=== PATIENT | male | born 1935 | race Two or more races ===

== ENCOUNTER 2022-03-20 10:57 | Inpatient (IN) | payer MEDICARE, OTHER ==
[~2022-03-20] VITALS: Ht 172.7 cm; Wt 94.8 kg
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
--- NOTE | 2022-03-20 11:40 | NUR ---
PARAMEDIC RN AT BEDSIDE
--- NOTE | 2022-03-20 11:41 | NUR ---
SWAB FOR COVID19 SENT TO LAB
[2022-03-20 11:54] LABS: BASOPHILS % (AUTO) 0.5 % (0.0-2.0); EOSINOPHILS % (AUTO) 0.4 % (0.0-6.0); HEMATOCRIT 41 % (39-51); HEMOGLOBIN 13.7 g/dL (13.5-17.5); LYMPHOCYTES % (AUTO) 10.9 % (20.0-44.0); MEAN CORPUSCULAR HGB CONC 33 g/dl (31.0-36.0); MEAN CORPUSCULAR VOLUME 81 fL (80-96); MONOCYTES # (AUTO) 0.9 K/uL (0.1-1.30); MONOCYTES % (AUTO) 9.8 % (2.0-12.0); NEUTROPHILS # (AUTO) 7.2 K/uL (1.8-8.9); NEUTROPHILS % (AUTO) 78.4 % (43.0-81.0); PLATELET COUNT (AUTO) 298 K/uL (150-450); RED BLOOD CELL COUNT(AUTO) 5.07 MIL/uL (4.5-6.0); WHITE BLOOD COUNT (AUTO) 9.2 K/uL (4.3-11.0)
[2022-03-20] MEDS ORDERED: METF-440 PO (12:00)
[2022-03-20] MEDS ORDERED: PANT40TA49 PO (12:00)
[2022-03-20] MEDS ORDERED: LISI20TA30 PO (12:00)
[2022-03-20] MEDS ORDERED: RISP1TAB97 PO (12:00)
[2022-03-20] MEDS ORDERED: LINA5TAB PO (12:00)
[2022-03-20] MEDS ORDERED: HYDR100T27 PO (12:00)
[2022-03-20] MEDS ORDERED: DIVA125C5 PO (12:00)
[2022-03-20] MEDS ORDERED: FENO145T21 PO (12:00)
[2022-03-20 12:11] LABS: CALCIUM, SERUM 9.6 mg/dL (8.5-10.1); CARBON DIOXIDE 26 mmol/L (21-32); CHLORIDE 100 mmol/L (98-107); CREATININE 1.3 mg/dL (0.6-1.3); GLUCOSE 148 mg/dL (74-106); POTASSIUM 3.2 mmol/L (3.5-5.1); SODIUM SERUM 138 mmol/L (136-145); UREA NITROGEN, BLOOD 13 mg/dL (7-18)
[2022-03-20 12:17] LABS: ALANINE AMINOTRANSFERASE 12 U/L (12-78); ALBUMIN 4.1 g/dL (3.4-5.0); ALCOHOL, BLOOD < 3 mg/dL (0-0); ALKALINE PHOSPHATASE 50 U/L (46-116); ASPARTATE AMINOTRANSFERASE 14 U/L (15-37); BILIRUBIN,DIRECT 0.1 mg/dL (0.0-0.2); BILIRUBIN,TOTAL 0.3 mg/dL (0.2-1.0); TOTAL PROTEIN, SERUM 8.2 g/dL (6.4-8.2)
[2022-03-20 12:20] LABS: ACETAMINOPHEN < 10 ug/ml (10-30)
--- NOTE | 2022-03-20 13:14 | NUR ---
URINE SAMPLE SENT TO LAB
[2022-03-20 14:00] LABS: BILIRUBIN,URINE NEGATIVE (NEGATIVE); COLOR,URINE YELLOW (YELLOW); LEUKOCYTE ESTERASE ,URINE NEGATIVE (NEGATIVE); NITRITE, URINE NEGATIVE (NEGATIVE); PROTEIN,URINE 2+ mg/dl (NEGATIVE); UGLUCOSE 1+ mg/dL (NEGATIVE)
[2022-03-20 14:02] LABS: BACTERIA,URINE Rare /HPF (None Seen); SQUAMOUS EPITHELIAL CELL,UR Few /HPF (None Seen); WBC,URINE 0-2 /HPF (0-3)
--- NOTE | 2022-03-20 15:11 | NUR ---
REPORT GIVEN TO NILA MIGUEL OF [employer]
[2022-03-20] MEDS ORDERED: DEXTROSE 50%-WATER 50 ML DISP.SYRIN IV PRN ×2 (15:30→16:00)
[2022-03-20] MEDS ORDERED: INSULIN REGULAR, HUMAN 100 UNIT/ML 3 ML VIAL SQ PRN (15:30)
[2022-03-20] MEDS ORDERED: *INSULIN REGULAR(HUMULIN R)HUM 100 UNIT/ML VIAL SQ PRN (15:30)
[2022-03-20] MEDS ORDERED: POTASSIUM CHLORIDE 20 MEQ TAB.PRT.SR PO ONE (16:00)
[2022-03-20 16:16] VITALS: BP 150/97
[2022-03-20] MEDS ORDERED: BLOOD SUGAR DIAGNOSTIC 1 EACH STRIP IN ONE (16:30)
[2022-03-20] MEDS ORDERED: MAGNESIUM HYDROXIDE 30 ML UDC PO PRN (16:30)
[2022-03-20] MEDS ORDERED: DIVALPROEX SODIUM 250 MG TABLET.DR PO PRN (16:30)
[2022-03-20] MEDS ORDERED: MAG HYDROX/AL HYDROX/SIMETH 30 ML UDC PO PRN (16:30)
[2022-03-20] MEDS ORDERED: clonazePAM 0.5 MG TABLET PO PRN ×2 (16:30→18:30)
[2022-03-20] MEDS ORDERED: ACETAMINOPHEN 325 MG TABLET PO PRN (16:30)
[2022-03-20] MEDS ORDERED: METFORMIN 500 MG TABLET PO SCH (17:00)
[2022-03-20] MEDS ORDERED: hydrALAZINE HCL 50 MG TABLET PO SCH (17:00)
[2022-03-20] MEDS ORDERED: DIVALPROEX SODIUM 125 MG CAP.SPRINK PO SCH ×2 (17:00)
[2022-03-20] MEDS: METFORMIN 500 MG TABLET PO SCH (17:24)
[2022-03-20] MEDS: hydrALAZINE HCL 50 MG TABLET PO SCH (17:24)
[2022-03-20] MEDS: INSULIN REGULAR, HUMAN 100 UNIT/ML 3 ML VIAL SQ PRN (17:25)
[2022-03-20] MEDS: BLOOD SUGAR DIAGNOSTIC 1 EACH STRIP VI SCH ×2 (17:27→22:01)
[2022-03-20] MEDS ORDERED: BLOOD SUGAR DIAGNOSTIC 1 EACH STRIP VI SCH (17:30)
--- NOTE | 2022-03-20 17:44 | NUR ---
Admitted an 87 years old male on 515 for GD. Pt.eloped from the facility , non compliant with care and agitated. Pt. is unable to to provide for his food, retirement or clothing due to a mental disorder. Pt. arrived in the unit via a wheelchair and wheeled by ER staffs. V/S taken, contraband done, skin assessment done with clear and intact skin and pt. signed the admissions papers. Upon face to face assessment, pt. is alert/oriented x2, very cooperative, denies suicidal and homicidal, denies visual and auditory hallucinations. Dr. Vines covering for Dr. Mock made aware of the admissions with orders and Dr. Hale reconciled meds. Needs attended and will continue to monitor for safety.
[2022-03-20 20:00] VITALS: BP 139/79
--- NOTE | 2022-03-20 20:32 | NUR ---
PATIENT IN BED ASLEEP. SAFETY MEASURES IMPLEMENTED. WILL CONTINUE TO MONITOR FOR SAFETY AND BEHAVIOR.
[2022-03-20] MEDS: *INSULIN REGULAR(HUMULIN R)HUM 100 UNIT/ML VIAL SQ PRN (22:02)
[2022-03-21 07:26] LABS: ALBUMIN 3.7 g/dL (3.4-5.0); BILIRUBIN,TOTAL 0.3 mg/dL (0.2-1.0); CALCIUM, SERUM 9.3 mg/dL (8.5-10.1); CREATININE 1.3 mg/dL (0.6-1.3); POTASSIUM 3.6 mmol/L (3.5-5.1); TOTAL PROTEIN, SERUM 7.4 g/dL (6.4-8.2)
[2022-03-21 07:29] LABS: CHOLESTEROL 94 mg/dL (<200); HDL CHOLESTEROL 31 mg/dL (40-60); LDL 60 mg/dL (0-99); TRIGLYCERIDES 62 mg/dL (30-150)
[2022-03-21] MEDS: BLOOD SUGAR DIAGNOSTIC 1 EACH STRIP VI SCH ×4 (07:33→21:58)
[2022-03-21 08:00] VITALS: BP 160/99
[2022-03-21] MEDS: METFORMIN 500 MG TABLET PO SCH ×2 (08:35→16:16)
[2022-03-21] MEDS: hydrALAZINE HCL 50 MG TABLET PO SCH ×3 (08:35→16:16)
[2022-03-21] MEDS: PANTOPRAZOLE 40 MG TABLET.DR PO SCH (08:39)
[2022-03-21] MEDS: Fenofibrate 48 MG TABLET PO SCH (08:39)
[2022-03-21] MEDS: LISINOPRIL (20MG) 20 MG TABLET PO SCH (08:40)
[2022-03-21] MEDS: LINAGLIPTIN 5 MG TABLET PO SCH (08:40)
[2022-03-21] MEDS ORDERED: PANTOPRAZOLE 40 MG TABLET.DR PO SCH (09:00)
[2022-03-21] MEDS ORDERED: LINAGLIPTIN 5 MG TABLET PO SCH (09:00)
[2022-03-21] MEDS ORDERED: LISINOPRIL (20MG) 20 MG TABLET PO SCH (09:00)
[2022-03-21] MEDS ORDERED: FENOFIBRATE NANOCRYS (145 MG) 145 MG TABLET PO SCH (09:00)
[2022-03-21] MEDS: risperiDONE 1 MG TABLET PO SCH ×2 (11:18→16:16)
[2022-03-21] MEDS: DIVALPROEX SODIUM 250 MG TABLET.DR PO SCH ×3 (11:19→16:16)
[2022-03-21 13:18] VITALS: BP 134/86
[2022-03-21 15:51] LABS: CREATININE 1.3 mg/dL (0.6-1.3)
[2022-03-21 16:11] VITALS: BP 161/99
--- NOTE | 2022-03-21 18:16 | NUR ---
RN-NOTES PATIENT STAYS IN THE ROOM MOST OF THE TIME,LYING IN BED, A/OX2 CALM,COOPERATIVE WITH THE STAFF.NO ACUTE DISTRESS NOTED. COMPLIANT WITH MEDICATIONS.AMBULATORY STEADY GAIT. ALL NEEDS ATTENDED AND ANTICIPATED.WILL CONT. MONITORING FOR SAFETY AND BEHAVIOR.WILL ENDORSE TO THE INCOMING NURSE FOR CONTINUITY OF CARE.
[2022-03-21 20:46] VITALS: BP 145/98
[2022-03-22] MEDS: BLOOD SUGAR DIAGNOSTIC 1 EACH STRIP VI SCH ×4 (07:31→22:03)
[2022-03-22] MEDS: INSULIN REGULAR, HUMAN 100 UNIT/ML 3 ML VIAL SQ PRN ×3 (07:32→16:53)
[2022-03-22 08:00] VITALS: BP 168/83
[2022-03-22] MEDS: Fenofibrate 48 MG TABLET PO SCH (08:40)
[2022-03-22] MEDS: DIVALPROEX SODIUM 250 MG TABLET.DR PO SCH ×3 (08:40→16:50)
[2022-03-22] MEDS: risperiDONE 1 MG TABLET PO SCH ×2 (08:40→16:50)
[2022-03-22] MEDS: LINAGLIPTIN 5 MG TABLET PO SCH (08:40)
[2022-03-22] MEDS: PANTOPRAZOLE 40 MG TABLET.DR PO SCH (08:40)
[2022-03-22] MEDS: hydrALAZINE HCL 50 MG TABLET PO SCH ×3 (08:41→16:51)
[2022-03-22] MEDS: LISINOPRIL (20MG) 20 MG TABLET PO SCH (08:41)
[2022-03-22] MEDS: METFORMIN 500 MG TABLET PO SCH ×2 (08:41→16:50)
[2022-03-22 16:00] VITALS: BP 143/83
--- NOTE | 2022-03-22 18:30 | NUR ---
RN NOTE PATIENT IN BED, AWAKE, VERBALLY RESPONSIVE. NO SIGNS OF ACUTE DISTRESS NOTED. STABLE ON ROOM AIR, BREATHING EVEN AND UNLABORED. PATIENT REMAINS ISOLATIVE, STAYED IN HIS ROOM THROUGHOUT THE SHIFT. COMPLIANT WITH MEDS. ACCUCHECKS DONE, NO S/SX OF HYPO/HYPERGLYCEMIA NOTED. SAFETY MEASURE MAINTAINED. WILL ENDORSE TO NEXT SHIFT FOR CONTINUITY OF CARE.
[2022-03-22 20:24] VITALS: BP 127/84
[2022-03-22] MEDS: TEMAZEPAM 7.5 MG CAPSULE PO PRN (22:04)
--- NOTE | 2022-03-23 07:25 | NUR ---
[facility] RN NOTES RECEIVED PATIENT LYING IN BED, SLEEPING BUT EASILY AWAKEN, A/O X1, WITHDRAWN, COOPERATIVE, NO ACUTE DISTRESS NOTED. NO SOB NOTED, BREATHING EVEN AND UNBLABORED, SAFETY MEASURES IN PLACE: BED AT LOWEST AND LOCKED POSITION, BED ALARM ON, FREQUENT VISUAL CHECK FOR SAFETY AND MONITORING BEHAVIOR. WILL CONTINUE PLAN OF CARE.
[2022-03-23] MEDS: BLOOD SUGAR DIAGNOSTIC 1 EACH STRIP VI SCH ×4 (07:55→21:17)
[2022-03-23 08:00] VITALS: BP 151/90
[2022-03-23] MEDS: LINAGLIPTIN 5 MG TABLET PO SCH (08:45)
[2022-03-23] MEDS: risperiDONE 1 MG TABLET PO SCH ×2 (08:46→16:36)
[2022-03-23] MEDS: METFORMIN 500 MG TABLET PO SCH ×2 (08:46→16:36)
[2022-03-23] MEDS: Fenofibrate 48 MG TABLET PO SCH (08:46)
[2022-03-23] MEDS: DIVALPROEX SODIUM 250 MG TABLET.DR PO SCH ×3 (08:46→16:37)
[2022-03-23] MEDS: PANTOPRAZOLE 40 MG TABLET.DR PO SCH (08:47)
[2022-03-23] MEDS: hydrALAZINE HCL 50 MG TABLET PO SCH ×3 (08:47→16:37)
[2022-03-23] MEDS: LISINOPRIL (20MG) 20 MG TABLET PO SCH (08:47)
--- NOTE | 2022-03-23 08:57 | NUR ---
NATALYA Initial Discharge: Pt currently resides at [address] [address]; ([phone]). NATALYA spoke with Caridad mendieta who stated that pt is not welcomed back due to not being able to care for pt. Pt has no supportive contact. NATALYA will work with the MD and pt to help coordinate appropriate discharge.
--- NOTE | 2022-03-23 08:57 | NUR ---
Treatment Plan: Pt refused to sign treatment plan and was very confused.
--- NOTE | 2022-03-23 08:57 | NUR ---
NATALYA Clinical Note: Pt placed on a 5150 hold for GD. Pt has been eloping for facility and has been non compliant. Pt currently resides at [address] [address]; ([phone]). NATALYA spoke with Caridad mendieta who stated that pt is not welcomed back due to not being able to care for pt. Pt has no supportive contact.
--- NOTE | 2022-03-23 09:19 | NUR ---
SNF Referral: NATALYA sent clinicals to Luke Patten ([phone]) for SNF placement. NATALYA sent H & P, progress notes, and medication list.
--- NOTE | 2022-03-23 10:58 | NUR ---
SNF Contact: SW received a call from Luke Patten ([phone]) who stated pt is accepted at [facility].
[2022-03-23] MEDS: INSULIN REGULAR, HUMAN 100 UNIT/ML 3 ML VIAL SQ PRN (11:45)
[2022-03-23 16:00] VITALS: BP 148/84
--- NOTE | 2022-03-23 18:47 | NUR ---
[facility] RN CLOSING NOTES PATIENT LYING IN BED, SLEEPING BUT EASILY AWAKEN, A/O X2, WITHDRAWN, COOPERATIVE, NO ACUTE DISTRESS NOTED. NO SOB NOTED, BREATHING EVEN AND UNLABORED. ALL DUE MEDS GIVEN, ALL NEEDS MET. SAFETY MEASURES MAINTAINED, KEPT PATIENT SAFE. WILL ENDORSE TO LEAD CARGO MOVER NURSE.
[2022-03-23] MEDS: TEMAZEPAM 7.5 MG CAPSULE PO PRN (21:36)
--- NOTE | 2022-03-24 07:27 | NUR ---
[facility] RN NOTE RECEIVED PT ASLEEP IN BED, EASILY AROUSED. PT IS A/OX2, REORIENTED PT NEEDED. ON ROOM AIR, TOLERATING WELL. NO SOB NOTED. NOT IN ANY SIGN OF RESPIRATORY DISTRESS. SAFETY MEASURES IN PLACE: BED IN LOWEST AND LOCKED POSITION, SIDE RAILS UPX2, BED ALARM ON, AND CALL LIGHT WITHIN REACH. WILL CONTINUE TO MONITOR PT.
[2022-03-24 08:00] VITALS: BP 157/86
[2022-03-24] MEDS: BLOOD SUGAR DIAGNOSTIC 1 EACH STRIP VI SCH ×4 (08:12→22:10)
[2022-03-24] MEDS: INSULIN REGULAR, HUMAN 100 UNIT/ML 3 ML VIAL SQ PRN ×3 (08:12→16:53)
[2022-03-24] MEDS: LINAGLIPTIN 5 MG TABLET PO SCH (08:42)
[2022-03-24] MEDS: Fenofibrate 48 MG TABLET PO SCH (08:42)
[2022-03-24] MEDS: hydrALAZINE HCL 50 MG TABLET PO SCH ×3 (08:43→16:52)
[2022-03-24] MEDS: risperiDONE 1 MG TABLET PO SCH ×2 (08:43→16:52)
[2022-03-24] MEDS: PANTOPRAZOLE 40 MG TABLET.DR PO SCH (08:43)
[2022-03-24] MEDS: DIVALPROEX SODIUM 250 MG TABLET.DR PO SCH ×3 (08:43→16:52)
[2022-03-24] MEDS: METFORMIN 500 MG TABLET PO SCH ×2 (08:43→16:52)
[2022-03-24] MEDS: LISINOPRIL (20MG) 20 MG TABLET PO SCH (08:44)
[2022-03-24 16:00] VITALS: BP 146/95
[2022-03-24 20:07] VITALS: BP 139/94
--- NOTE | 2022-03-24 22:10 | NUR ---
[facility] TREASURY ACCOUNTANT NOTES BLOOD SUGAR CHECKED DONE 116, NO INSULIN COVERAGES AT THIS TIME, NO SIGNS OF HYPO GLYCEMIA NOTED. WILL CONTINUE MONITORING.
[2022-03-24] MEDS: *INSULIN REGULAR(HUMULIN R)HUM 100 UNIT/ML VIAL SQ PRN (22:12)
[2022-03-25] MEDS: BLOOD SUGAR DIAGNOSTIC 1 EACH STRIP VI SCH ×4 (07:59→22:00)
[2022-03-25 08:00] VITALS: BP 150/91
[2022-03-25] MEDS: DIVALPROEX SODIUM 250 MG TABLET.DR PO SCH ×3 (08:46→17:38)
[2022-03-25] MEDS: LISINOPRIL (20MG) 20 MG TABLET PO SCH (08:47)
[2022-03-25] MEDS: PANTOPRAZOLE 40 MG TABLET.DR PO SCH (08:47)
[2022-03-25] MEDS: hydrALAZINE HCL 50 MG TABLET PO SCH ×3 (08:47→17:37)
[2022-03-25] MEDS: LINAGLIPTIN 5 MG TABLET PO SCH (08:47)
[2022-03-25] MEDS: risperiDONE 1 MG TABLET PO SCH ×2 (08:47→17:38)
[2022-03-25] MEDS: METFORMIN 500 MG TABLET PO SCH ×2 (08:47→17:38)
[2022-03-25] MEDS: Fenofibrate 48 MG TABLET PO SCH (09:13)
[2022-03-25 16:00] VITALS: BP 137/92
--- NOTE | 2022-03-25 19:45 | NUR ---
RN OPENING NOTES: RECEIVED PATIENT SLEEP IN BED COMFORTABLY, AROUSABLE TO VERBAL STIMULI, BED IN LOW POSITION, NO COMPLAIN OF PAIN AND DISCOMFORT AT THIS TIME ,ON ROOM AIR SATURATING WELL, NO BEHAVIORAL CHANGES HAS BEEN OBSERVED, KEPT CLEAN AND DRY ALL NEEDS MET, CONTINUE TO MONITOR.
[2022-03-25 20:00] VITALS: BP 138/80
[2022-03-25 20:14] VITALS: BP 138/80
--- NOTE | 2022-03-25 22:11 | NUR ---
RN NOTES: 2200 BLOOD SUGAR-105/ NO INSULIN GIVEN PER SLIDING SCALE
[2022-03-26] MEDS: BLOOD SUGAR DIAGNOSTIC 1 EACH STRIP VI SCH ×4 (07:52→21:26)
[2022-03-26 08:00] VITALS: BP 162/92
[2022-03-26] MEDS: METFORMIN 500 MG TABLET PO SCH ×2 (08:29→16:24)
[2022-03-26] MEDS: Fenofibrate 48 MG TABLET PO SCH (08:29)
[2022-03-26] MEDS: risperiDONE 1 MG TABLET PO SCH ×2 (08:29→16:24)
[2022-03-26] MEDS: PANTOPRAZOLE 40 MG TABLET.DR PO SCH (08:29)
[2022-03-26] MEDS: DIVALPROEX SODIUM 250 MG TABLET.DR PO SCH ×3 (08:30→16:24)
[2022-03-26] MEDS: LINAGLIPTIN 5 MG TABLET PO SCH (08:30)
[2022-03-26] MEDS: hydrALAZINE HCL 50 MG TABLET PO SCH ×3 (08:30→16:24)
[2022-03-26] MEDS: LISINOPRIL (20MG) 20 MG TABLET PO SCH (08:30)
[2022-03-26 16:00] VITALS: BP 160/99
--- NOTE | 2022-03-26 17:39 | NUR ---
RN-NOTES PATIENT ISOLATIVE STAYS IN THE ROOM THIS SHIFT,REST TO ATTEND GROUPS DESPITE ENCOURAGEMENT,A/O X2,GUARDED,NO ACUTE DISTRESS NOTED. COMPLIANT WITH MEDICATIONS. PATIENT ABLE TO AMBULATE TO THE RESTROOM WITH STEADY GAIT. ALL NEEDS ATTENDED AND ANTICIPATED. WILL CONT. MONITORING FOR SAFETY AND BEHAVIOR.WILL ENDORSE TO THE NEXT SHIFT FOR CONTINUITY OF CARE. Addendum: 03/26/22 at 1748 by FLORA PRATT RN CORRECTIONS ON MY ABOVE NOTES . PATIENT REFUSED GROUPS.
--- NOTE | 2022-03-26 19:30 | NUR ---
[facility] RN NOTE, RECEIVED PATIENT AWAKE AND IN BED, NO S/S OR COMPLAINTS OF PAIN AT THIS TIME. PATIENT IS DISPLAYING NO S/S OF APPARENT DISTRESS AT THIS TIME. PATIENT BREATHING IS UNLABORED WITH EQUAL RISE AND FALL OF THE CHEST. PATIENT IS ALERT AND ORIENTED X 2 ON ROOM AIR WITH A SPO2 98%. PATIENT IS COMPLIANT WITH MEDICATIONS, CONFUSED AT TIMES, ANXIOUS, PARANOID, ISOLATIVE, AND COOPERATIVE. PATIENT DENIES SUICIDAL AND HOMICIDAL IDEATIONS AT THIS TIME. PATIENT ASSISTED WITH TURNING AND REPOSITIONING Q2HR AND PRN FOR COMFORT AND CIRCULATION. PATIENT HAS NO NEEDS AT THIS TIME. PATIENT EDUCATED ON THE USE OF THE CALL SHERIDAN. PATIENT BED SIDE RAILS UP X 2 FOR SAFETY. PATIENT BED IS LOCKED AND LOW. WILL CONTINUE TO MONITOR THIS PATIENT Q15 MINUTES WITH THE HELP OF STAFF TO MAINTAIN SAFETY.
[2022-03-26 20:00] VITALS: BP 155/88
[2022-03-27] MEDS: BLOOD SUGAR DIAGNOSTIC 1 EACH STRIP VI SCH (07:30)
[2022-03-27 08:00] VITALS: BP 156/93
[2022-03-27] MEDS: METFORMIN 500 MG TABLET PO SCH ×2 (08:16→16:48)
[2022-03-27] MEDS: Fenofibrate 48 MG TABLET PO SCH (08:16)
[2022-03-27] MEDS: LINAGLIPTIN 5 MG TABLET PO SCH (08:16)
[2022-03-27] MEDS: DIVALPROEX SODIUM 250 MG TABLET.DR PO SCH ×3 (08:16→16:48)
[2022-03-27] MEDS: PANTOPRAZOLE 40 MG TABLET.DR PO SCH (08:16)
[2022-03-27] MEDS: hydrALAZINE HCL 50 MG TABLET PO SCH ×3 (08:17→16:49)
[2022-03-27] MEDS: risperiDONE 1 MG TABLET PO SCH ×2 (08:23→16:49)
[2022-03-27] MEDS: LISINOPRIL (20MG) 20 MG TABLET PO SCH (08:24)
--- NOTE | 2022-03-27 12:52 | NUR ---
Court Notification: Pt does not have any supportive system to contact for 1754.
--- NOTE | 2022-03-27 13:02 | NUR ---
Court Hearing: Patient's court hearing for 6340 was today and it was upheld for GD.
[2022-03-27 16:00] VITALS: BP 142/89
[2022-03-27] MEDS: SERTRALINE HCL 25 MG TABLET PO SCH (16:48)
--- NOTE | 2022-03-27 19:53 | NUR ---
RN-NOTES : PATIENT RESTING HIS BED, A/OX2 EASILY AGITATED , DISORGNIZED ISOLATIVE , ,GUARDED, FLAT AFFECT ,NO ACUTE DISTRESS NOTED. COMPLIANT WITH MEDICATIONS. ENCOURAGED TO ATTENDED GROUP MEETING. AND ENCOURAGED TO CONCERN ANY FEELING , SAFETY PRECAUTIONS MAINTAINED, ALL NEEDS ATTENDED AND ANTICIPATED. WILL CONTINUE. MONITORING FOR SAFETY AND BEHAVIOR.
[2022-03-28 08:00] VITALS: BP 160/99
[2022-03-28] MEDS: LINAGLIPTIN 5 MG TABLET PO SCH (08:19)
[2022-03-28] MEDS: METFORMIN 500 MG TABLET PO SCH ×2 (08:19→17:27)
[2022-03-28] MEDS: SERTRALINE HCL 25 MG TABLET PO SCH (08:19)
[2022-03-28] MEDS: PANTOPRAZOLE 40 MG TABLET.DR PO SCH (08:19)
[2022-03-28] MEDS: DIVALPROEX SODIUM 250 MG TABLET.DR PO SCH ×3 (08:20→17:27)
[2022-03-28] MEDS: risperiDONE 1 MG TABLET PO SCH ×2 (08:20→17:28)
[2022-03-28] MEDS: Fenofibrate 48 MG TABLET PO SCH (08:21)
[2022-03-28] MEDS: LISINOPRIL (20MG) 20 MG TABLET PO SCH (08:21)
[2022-03-28] MEDS: hydrALAZINE HCL 50 MG TABLET PO SCH ×3 (08:22→17:29)
[2022-03-28 16:00] VITALS: BP 141/96
--- NOTE | 2022-03-28 17:47 | NUR ---
Dr. Mock made aware of the valproic level acid of 49.6.
--- NOTE | 2022-03-28 20:03 | NUR ---
[facility] RN NOTE, RECEIVED PATIENT AWAKE AND IN BED, NO S/S OR COMPLAINTS OF PAIN AT THIS TIME. PATIENT IS DISPLAYING NO S/S OF APPARENT DISTRESS AT THIS TIME. PATIENT BREATHING IS UNLABORED WITH EQUAL RISE AND FALL OF THE CHEST. PATIENT IS ALERT AND ORIENTED X 2 ON ROOM AIR WITH A SPO2 96%. PATIENT IS COMPLIANT WITH MEDICATIONS, CONFUSED AT TIMES, DEPRESSED, PARANOID, ISOLATIVE, AND COOPERATIVE. PATIENT DENIES SUICIDAL AND HOMICIDAL IDEATIONS AT THIS TIME. PATIENT ASSISTED WITH TURNING AND REPOSITIONING Q2HR AND PRN FOR COMFORT AND CIRCULATION. PATIENT HAS NO NEEDS AT THIS TIME. PATIENT EDUCATED ON THE USE OF THE CALL SHERIDAN. PATIENT BED SIDE RAILS UP X 2 FOR SAFETY. PATIENT BED IS LOCKED AND LOW. WILL CONTINUE TO MONITOR THIS PATIENT Q15 MINUTES WITH THE HELP OF STAFF TO MAINTAIN SAFETY.
[2022-03-28 20:45] VITALS: BP 158/88
[2022-03-29 08:00] VITALS: BP 148/90
[2022-03-29] MEDS: risperiDONE 1 MG TABLET PO SCH ×2 (08:41→17:49)
[2022-03-29] MEDS: LINAGLIPTIN 5 MG TABLET PO SCH (08:41)
[2022-03-29] MEDS: SERTRALINE HCL 25 MG TABLET PO SCH (08:41)
[2022-03-29] MEDS: Fenofibrate 48 MG TABLET PO SCH (08:41)
[2022-03-29] MEDS: METFORMIN 500 MG TABLET PO SCH ×2 (08:41→17:50)
[2022-03-29] MEDS: PANTOPRAZOLE 40 MG TABLET.DR PO SCH (08:41)
[2022-03-29] MEDS: LISINOPRIL (20MG) 20 MG TABLET PO SCH (08:42)
[2022-03-29] MEDS: DIVALPROEX SODIUM 250 MG TABLET.DR PO SCH ×3 (08:42→17:51)
[2022-03-29] MEDS: hydrALAZINE HCL 50 MG TABLET PO SCH ×3 (08:42→17:51)
[2022-03-29 16:00] VITALS: BP 153/110
[2022-03-29 20:45] VITALS: BP 140/89
[2022-03-30] MEDS: hydrALAZINE HCL 50 MG TABLET PO SCH ×3 (07:53→16:03)
[2022-03-30] MEDS: LISINOPRIL (20MG) 20 MG TABLET PO SCH (07:53)
[2022-03-30 08:00] VITALS: BP 188/133
[2022-03-30] MEDS: LINAGLIPTIN 5 MG TABLET PO SCH (08:02)
[2022-03-30] MEDS: SERTRALINE HCL 25 MG TABLET PO SCH (08:02)
[2022-03-30] MEDS: Fenofibrate 48 MG TABLET PO SCH (08:02)
[2022-03-30] MEDS: DIVALPROEX SODIUM 250 MG TABLET.DR PO SCH ×3 (08:02→16:02)
[2022-03-30] MEDS: METFORMIN 500 MG TABLET PO SCH ×2 (08:02→16:02)
[2022-03-30] MEDS: risperiDONE 1 MG TABLET PO SCH ×2 (08:02→16:11)
[2022-03-30] MEDS: PANTOPRAZOLE 40 MG TABLET.DR PO SCH (08:03)
--- NOTE | 2022-03-30 09:39 | NUR ---
RN-CO: PATIENT IS CALM AND COOPERATIVE TO CARE. DENIED PAIN AND DISCOMFORTS.ATE 100% OF HIS BREAKFAST. I ENCOURAGED HIM TO VENTILATE FEELINGS AND ATTEND GROUP ACTIVITIES.BLOOD PRESSURE AT 745 AM WAS 188/130 SO I GAVE HIS ANTIHYPERTENSIVE MEDS EARLIER THAN 08AM.
--- NOTE | 2022-03-30 12:00 | NUR ---
RN-CO: BP WENT DOWN TO 160/ 130. I WILL CONTINUE TO MONITOR. HE DENIED PAIN AND DISCOMFORTS.
--- NOTE | 2022-03-30 15:28 | NUR ---
RN-CO; DR MONTENEGRO MADE AWARE THAT PT'S BP IS 184/109, HR 85, AWAITING FOR MD'S REPLY.
--- NOTE | 2022-03-30 15:37 | NUR ---
RN-CO: DR FRANKEL ORDERED MINOXIDIL 5 MG PO BID , PRN FOR SYSTOLIC BP > 160 , LASIX 20 MG X1 AND K DUR 10 MEQ X 1, NOTED AND CARRIED OUT.
[2022-03-30 16:00] VITALS: BP 184/109
[2022-03-30] MEDS ORDERED: FUROSEMIDE 20 MG TABLET PO ONE (16:00)
[2022-03-30] MEDS ORDERED: POTASSIUM CHLORIDE 10 MEQ TABLET.SA PO ONE (16:00)
[2022-03-30 18:53] VITALS: BP 160/100
[2022-03-30] MEDS: MINOXIDIL (2.5MG) 2.5 MG TABLET PO PRN (18:53)
[2022-03-30 20:07] VITALS: BP 118/64
[2022-03-31 08:00] VITALS: BP 121/71
[2022-03-31] MEDS: LINAGLIPTIN 5 MG TABLET PO SCH (08:50)
[2022-03-31] MEDS: Fenofibrate 48 MG TABLET PO SCH (08:50)
[2022-03-31] MEDS: METFORMIN 500 MG TABLET PO SCH ×2 (08:50→16:10)
[2022-03-31] MEDS: risperiDONE 1 MG TABLET PO SCH ×2 (08:51→16:10)
[2022-03-31] MEDS: hydrALAZINE HCL 50 MG TABLET PO SCH ×3 (08:51→16:10)
[2022-03-31] MEDS: PANTOPRAZOLE 40 MG TABLET.DR PO SCH (08:51)
[2022-03-31] MEDS: DIVALPROEX SODIUM 250 MG TABLET.DR PO SCH ×3 (08:51→16:10)
[2022-03-31] MEDS: LISINOPRIL (20MG) 20 MG TABLET PO SCH (08:51)
[2022-03-31] MEDS: SERTRALINE HCL 25 MG TABLET PO SCH (08:51)
--- NOTE | 2022-03-31 09:00 | NUR ---
RN NOTE- AOX2, MED COMPLIANT, WITHDRAWN, DIRECTABLE , NO BEHAVIORAL ISSUES
[2022-03-31 16:00] VITALS: BP 114/68
[2022-03-31 19:51] VITALS: BP 120/64
[2022-04-01 08:00] VITALS: BP 148/80
[2022-04-01] MEDS: hydrALAZINE HCL 50 MG TABLET PO SCH ×3 (09:05→16:49)
[2022-04-01] MEDS: Fenofibrate 48 MG TABLET PO SCH (09:05)
[2022-04-01] MEDS: METFORMIN 500 MG TABLET PO SCH ×2 (09:05→16:48)
[2022-04-01] MEDS: SERTRALINE HCL 25 MG TABLET PO SCH (09:05)
[2022-04-01] MEDS: PANTOPRAZOLE 40 MG TABLET.DR PO SCH (09:05)
[2022-04-01] MEDS: DIVALPROEX SODIUM 250 MG TABLET.DR PO SCH ×3 (09:06→16:49)
[2022-04-01] MEDS: risperiDONE 1 MG TABLET PO SCH ×2 (09:06→16:49)
[2022-04-01] MEDS: LISINOPRIL (20MG) 20 MG TABLET PO SCH (09:06)
[2022-04-01] MEDS: LINAGLIPTIN 5 MG TABLET PO SCH (09:06)
[2022-04-01 16:00] VITALS: BP 141/79
--- NOTE | 2022-04-01 19:13 | NUR ---
RN CLOSING NOTE- PT IN BED SLEEPING, CONFUSED AND WITHDRAWN. NO DISTRESS NOTED AT THIS TIME. MED COMPLIANT. NO RESPIRATORY OR CARDIAC DISTRESS NOTED. NO PAIN EXPRESSED. PT IN STABLE COND AT THIS TIME, ALL NEEDS MET. WILL ENDORSE THU TO KENNEL AIDE NURSE.
[2022-04-01 20:21] VITALS: BP 156/89
[2022-04-02 08:00] VITALS: BP 148/88
[2022-04-02] MEDS: PANTOPRAZOLE 40 MG TABLET.DR PO SCH (08:37)
[2022-04-02] MEDS: LINAGLIPTIN 5 MG TABLET PO SCH (08:37)
[2022-04-02] MEDS: Fenofibrate 48 MG TABLET PO SCH (08:37)
[2022-04-02] MEDS: DIVALPROEX SODIUM 250 MG TABLET.DR PO SCH ×3 (08:38→16:13)
[2022-04-02] MEDS: LISINOPRIL (20MG) 20 MG TABLET PO SCH (08:38)
[2022-04-02] MEDS: SERTRALINE HCL 25 MG TABLET PO SCH (08:38)
[2022-04-02] MEDS: risperiDONE 1 MG TABLET PO SCH ×2 (08:38→16:13)
[2022-04-02] MEDS: METFORMIN 500 MG TABLET PO SCH ×2 (08:38→16:12)
[2022-04-02] MEDS: hydrALAZINE HCL 50 MG TABLET PO SCH ×3 (08:39→16:12)
[2022-04-02 16:00] VITALS: BP 120/82
--- NOTE | 2022-04-02 19:30 | NUR ---
[facility] RN NOTE, RECEIVED PATIENT AWAKE AND IN BED, NO S/S OR COMPLAINTS OF PAIN AT THIS TIME. PATIENT IS DISPLAYING NO S/S OF APPARENT DISTRESS AT THIS TIME. PATIENT BREATHING IS UNLABORED WITH EQUAL RISE AND FALL OF THE CHEST. PATIENT IS ALERT AND ORIENTED X 2 ON ROOM AIR WITH A SPO2 98%. PATIENT IS COMPLIANT WITH MEDICATIONS, CONFUSED AT TIMES, CALM, POLITE, DEPRESSED, ISOLATIVE, AND COOPERATIVE. PATIENT DENIES SUICIDAL AND HOMICIDAL IDEATIONS AT THIS TIME. PATIENT ASSISTED WITH TURNING AND REPOSITIONING Q2HR AND PRN FOR COMFORT AND CIRCULATION. PATIENT HAS NO NEEDS AT THIS TIME. PATIENT EDUCATED ON THE USE OF THE CALL SHERIDAN. PATIENT BED SIDE RAILS UP X 2 FOR SAFETY. PATIENT BED IS LOCKED AND LOW. WILL CONTINUE TO MONITOR THIS PATIENT Q15 MINUTES WITH THE HELP OF STAFF TO MAINTAIN SAFETY.
[2022-04-02 20:01] VITALS: BP 138/76
[2022-04-03 08:00] VITALS: BP 185/114
[2022-04-03] MEDS: Fenofibrate 48 MG TABLET PO SCH (08:06)
[2022-04-03] MEDS: METFORMIN 500 MG TABLET PO SCH (08:06)
--- NOTE | 2022-04-03 08:06 | NUR ---
NATALYA Initial Discharge Note: Patient will be discharged to [facility] located at [address] [place] [address]; ([phone]). Please arrange transportation at 1PM. NATALYA spoke with Luke larsen ([phone]) who stated that pt is welcomed back today. Patient has no supportive contact. Patient denies visual/auditory hallucinations. Patient denies suicidal or homicidal ideation. Patient will follow up with (Respiratory Care Assistant) Dr. Hale at [address] [facility], [place] [address]; ([phone]) and (Psychiatrist) Dr. Mock [address], [place] [address]; ([phone]). Patient presented with euthymic mood and congruent affect.
[2022-04-03] MEDS: DIVALPROEX SODIUM 250 MG TABLET.DR PO SCH ×2 (08:07→12:35)
[2022-04-03] MEDS: PANTOPRAZOLE 40 MG TABLET.DR PO SCH (08:07)
[2022-04-03] MEDS: hydrALAZINE HCL 50 MG TABLET PO SCH ×2 (08:07→12:35)
[2022-04-03] MEDS: LINAGLIPTIN 5 MG TABLET PO SCH (08:07)
[2022-04-03] MEDS: SERTRALINE HCL 25 MG TABLET PO SCH (08:07)
[2022-04-03] MEDS: risperiDONE 1 MG TABLET PO SCH (08:07)
[2022-04-03] MEDS: LISINOPRIL (20MG) 20 MG TABLET PO SCH (08:08)
[2022-04-03] MEDS: MINOXIDIL (2.5MG) 2.5 MG TABLET PO PRN (09:53)
--- NOTE | 2022-04-03 10:41 | NUR ---
RN-NOTES RECEIVED T.O DISCHARGE ORDER FROM DR. KONG ( PSYCHIATRIST).NOTED AND CARRIED OUT.
--- NOTE | 2022-04-03 11:28 | NUR ---
RN-NOTES PATIENT BP OF 190/110, PULSE 80. DNP MICKY MADE AWARE WITH T.O ORDER OF HYDRALAZINE HCL 10MG P.O ONE TIME. NOTED AND CARRIED OUT.
[2022-04-03] MEDS ORDERED: hydrALAZINE HCL 10 MG TABLET PO ONE (11:30)
[2022-04-03 12:35] VITALS: BP 147/97
--- NOTE | 2022-04-03 13:20 | NUR ---
RN-DISCHARGE NOTES PATIENT WAS DISCHARGE TO [facility],REPORT WAS GIVEN TO SARAH ( FACILITY CHILD ADOLESCENT CARE STAFF). GABRIEL WEEKS MEDICALLY CLEARED PATIENT FOR DISCHARGE. PATIENT DID NOT VERBALIZE SI/HI,DENIES VISUAL/AUDITORY HALLUCINATIONS AT THE TIME OF DISCHARGE. PATIENT WAS SPECIAL EQUIPMENT TECHNICIAN BY AMBULANCE VIA GURNEY WITH TWO STAFF ASSIST. PATIENT LEFT THE UNIT IN STABLE CONDITION A/O X3, BP OF 158/87,PULSE OF 98. ALL BELONGINGS WAS GIVEN BACK TO THE PATIENT INCLUDING ANDERS OF $ 4.00.
== END 2022-04-03 13:20 | DRG 885 ==
LOC: ER 11:07 → GPS 16:05
PROVIDERS: ADMIT Psychiatry & Neurology Psychiatry; ATTEND Nurse Practitioner Acute Care
DX: F25.9 Schizoaffective disorder, unspecified (principal); F03.94 Unspecified dementia, unspecified severity, with anxiety; F03.93 Unspecified dementia, unspecified severity, with mood disturbance; F29 Unspecified psychosis not due to a substance or known physiological condition; E11.9 Type 2 diabetes mellitus without complications; E87.6 Hypokalemia; K21.9 Gastro-esophageal reflux disease without esophagitis; Z66 Do not resuscitate; I10 Essential (primary) hypertension; Z79.84 Long term (current) use of oral hypoglycemic drugs; Z79.899 Other long term (current) drug therapy; Z73.6 Limitation of activities due to disability; R53.1 Weakness; R27.8 Other lack of coordination; Z91.81 History of falling; Z91.199 Patient's noncompliance with other medical treatment and regimen due to unspecified reason
CPT/HCPCS: 36415; 70450-TC; 71045-TC; 80048-TC; 80053-TC; 80061-TC; 80076-TC; 80164-TC; 81001; 82565-TC; 82962-TC; 84484-TC; 85025-TC; 87081-TC; C9803; G0480; J1815

== ENCOUNTER 2022-11-19 15:08 | Inpatient (IN) | payer MEDICARE, OTHER ==
[~2022-11-19] VITALS: Ht 172.7 cm; Wt 90.7 kg
[~2022-11-19 15:08] MED LIST: DIVA125C5 PO; FENO145T21 PO; HYDR100T27 PO; LINA5TAB PO; LISI20TA30 PO; METF-440 PO; PANT40TA49 PO; RISP1TAB97 PO
[2022-11-19] MEDS ORDERED: MAGN400O6 PO (15:52)
[2022-11-19] MEDS ORDERED: ACET-868 PO (15:52)
[2022-11-19] MEDS ORDERED: DIVA-76 PO (15:52)
[2022-11-19] MEDS ORDERED: RISP0.2515 PO (15:52)
[2022-11-19] MEDS ORDERED: AMLO-213 PO (15:52)
[2022-11-19] MEDS ORDERED: SERT50TA12 PO (15:52)
[2022-11-19 16:16] LABS: BASOPHILS # (AUTO) 0.1 K/uL (0.0-0.2); BASOPHILS % (AUTO) 0.8 % (0.0-2.0); EOSINOPHILS # (AUTO) 0.2 K/uL (0.0-0.7); EOSINOPHILS % (AUTO) 3.3 % (0.0-6.0); HEMATOCRIT 41 % (39-51); HEMOGLOBIN 13.5 g/dL (13.5-17.5); LYMPHOCYTES # (AUTO) 2.9 K/uL (0.8-4.8); LYMPHOCYTES % (AUTO) 42.7 % (20.0-44.0); MEAN CORPUSCULAR HEMOGLOBIN 27 PG (26.0-33.0); MEAN CORPUSCULAR HGB CONC 33 g/dl (31.0-36.0); MEAN CORPUSCULAR VOLUME 82 fL (80-96); MONOCYTES # (AUTO) 0.6 K/uL (0.1-1.30); MONOCYTES % (AUTO) 9.1 % (2.0-12.0); NEUTROPHILS % (AUTO) 44.1 % (43.0-81.0); PLATELET COUNT (AUTO) 280 K/uL (150-450); RED BLOOD CELL COUNT(AUTO) 4.98 MIL/uL (4.5-6.0); WHITE BLOOD COUNT (AUTO) 6.7 K/uL (4.3-11.0)
[2022-11-19 16:24] LABS: CHLORIDE 100 mmol/L (98-107); SODIUM SERUM 138 mmol/L (136-145)
[2022-11-19 17:00] LABS: ALANINE AMINOTRANSFERASE 19 U/L (12-78); ALBUMIN 3.9 g/dL (3.4-5.0); ALKALINE PHOSPHATASE 43 U/L (46-116); ASPARTATE AMINOTRANSFERASE 18 U/L (15-37); BILIRUBIN,DIRECT 0.1 mg/dL (0.0-0.2); BILIRUBIN,TOTAL 0.3 mg/dL (0.2-1.0); CALCIUM, SERUM 9.1 mg/dL (8.5-10.1)
[2022-11-19 17:06] LABS: CARBON DIOXIDE 26 mmol/L (21-32); CREATININE 1.3 mg/dL (0.6-1.3); GLUCOSE 154 mg/dL (74-106); UREA NITROGEN, BLOOD 19 mg/dL (7-18)
[2022-11-19] MEDS ORDERED: POTASSIUM CHLORIDE 20 MEQ TAB.PRT.SR PO ONE ×2 (21:00→21:01)
[2022-11-19] MEDS ORDERED: Z GUARD REMEDY 4 OZ OINT TP PRN (21:30)
[2022-11-19] MEDS ORDERED: ONDANSETRON HCL/PF 4 MG/2 ML VIAL IVP PRN (21:30)
[2022-11-19] MEDS ORDERED: ACETAMINOPHEN 325 MG TABLET PO PRN (21:30)
[2022-11-19] MEDS ORDERED: MAGNESIUM HYDROXIDE 30 ML UDC PO PRN (21:30)
[2022-11-19] MEDS ORDERED: MORPHINE SULFATE INJ 2 MG/ML DISP.SYRIN IV PRN (21:30)
[2022-11-19 21:40] VITALS: BP 174/106; TEMP 98.7; O2SAT 98
[2022-11-19] MEDS: hydrALAZINE HCL 50 MG TABLET PO SCH (22:26)
[2022-11-19] MEDS: risperiDONE 0.25 MG TABLET PO SCH (22:26)
[2022-11-20] VITALS: BP 160/100; TEMP 98.8; O2SAT 99
[2022-11-20 04:00] VITALS: BP 159/98; TEMP 98; O2SAT 100
[2022-11-20] MEDS: hydrALAZINE HCL 50 MG TABLET PO SCH ×3 (04:49→21:24)
[2022-11-20 07:27] LABS: BASOPHILS # (AUTO) 0.1 K/uL (0.0-0.2); BASOPHILS % (AUTO) 0.8 % (0.0-2.0); EOSINOPHILS # (AUTO) 0.2 K/uL (0.0-0.7); EOSINOPHILS % (AUTO) 3.2 % (0.0-6.0); HEMATOCRIT 42 % (39-51); LYMPHOCYTES # (AUTO) 2.8 K/uL (0.8-4.8); LYMPHOCYTES % (AUTO) 40.5 % (20.0-44.0); MEAN CORPUSCULAR HEMOGLOBIN 28 PG (26.0-33.0); MEAN CORPUSCULAR HGB CONC 33 g/dl (31.0-36.0); MEAN CORPUSCULAR VOLUME 83 fL (80-96); MONOCYTES # (AUTO) 0.7 K/uL (0.1-1.30); MONOCYTES % (AUTO) 9.6 % (2.0-12.0); NEUTROPHILS # (AUTO) 3.1 K/uL (1.8-8.9); NEUTROPHILS % (AUTO) 45.9 % (43.0-81.0); PLATELET COUNT (AUTO) 285 K/uL (150-450); RED BLOOD CELL COUNT(AUTO) 5.08 MIL/uL (4.5-6.0); RED CELL DISTRIBUTION WIDTH 14.3 % (11.5-15.0); WHITE BLOOD COUNT (AUTO) 6.9 K/uL (4.3-11.0)
[2022-11-20] MEDS: METFORMIN 500 MG TABLET PO SCH ×2 (07:53→17:30)
[2022-11-20] MEDS: PANTOPRAZOLE 40 MG/PACK PACK PO SCH (07:54)
[2022-11-20 08:00] VITALS: BP 167/88; TEMP 97.7; O2SAT 95
[2022-11-20] MEDS ORDERED: LISINOPRIL (20MG) 20 MG TABLET PO SCH (09:00)
[2022-11-20 09:04] LABS: ALANINE AMINOTRANSFERASE 19 U/L (12-78); ALKALINE PHOSPHATASE 38 U/L (46-116); ASPARTATE AMINOTRANSFERASE 16 U/L (15-37); BILIRUBIN,TOTAL 0.4 mg/dL (0.2-1.0); CALCIUM, SERUM 9.3 mg/dL (8.5-10.1); CARBON DIOXIDE 28 mmol/L (21-32); CREATININE 1.1 mg/dL (0.6-1.3); GLUCOSE 100 mg/dL (74-106); PHOSPHORUS 3.1 mg/dL (2.5-4.9); UREA NITROGEN, BLOOD 16 mg/dL (7-18)
[2022-11-20 09:06] LABS: IRON, SERUM 61 ug/dl (50-175); TOTAL IRON BINDING CAPACITY 298 ug/dl (250-450)
[2022-11-20 09:18] LABS: CHOLESTEROL 138 mg/dL (<200); HDL CHOLESTEROL 39 mg/dL (40-60); LDL 90 mg/dL (0-99); THYROID STIMULATING HORMONE 4.346 uIU/mL (0.358-3.74); TRIGLYCERIDES 66 mg/dL (30-150)
[2022-11-20] MEDS: risperiDONE 0.25 MG TABLET PO SCH (09:41)
[2022-11-20] MEDS: AMLODIPINE BESYLATE 10 MG TABLET PO SCH (09:42)
[2022-11-20] MEDS: LINAGLIPTIN 5 MG TABLET PO SCH (09:43)
[2022-11-20] MEDS: DIVALPROEX SODIUM 250 MG TABLET.DR PO SCH ×2 (09:43→16:30)
[2022-11-20] MEDS: SERTRALINE HCL 50 MG TABLET PO SCH (09:43)
[2022-11-20] MEDS: FENOFIBRATE NANOCRYS (145 MG) 145 MG TABLET PO SCH (09:46)
[2022-11-20 10:02] LABS: CHLORIDE 104 mmol/L (98-107); POTASSIUM 3.3 mmol/L (3.5-5.1); SODIUM SERUM 142 mmol/L (136-145)
[2022-11-20 12:00] VITALS: BP 159/89; TEMP 97.7; O2SAT 95
[2022-11-20] MEDS ORDERED: POTASSIUM CHLORIDE 20 MEQ TAB.PRT.SR PO ONE (14:30)
[2022-11-20 16:00] VITALS: BP 173/104; TEMP 99; O2SAT 96
[2022-11-20] MEDS ORDERED: LISINOPRIL (20MG) 20 MG TABLET PO ONE (17:00)
[2022-11-20] MEDS: GLUCERNA SHAKE 237 ML CAN PO SCH (17:27)
[2022-11-20 20:00] VITALS: BP 150/84; TEMP 98.2; O2SAT 94
[2022-11-20] MEDS: risperiDONE 1 MG TABLET PO SCH (21:24)
[2022-11-21 04:00] VITALS: BP 141/78; TEMP 98; O2SAT 96
[2022-11-21] MEDS: hydrALAZINE HCL 50 MG TABLET PO SCH ×3 (05:31→21:08)
[2022-11-21 06:17] LABS: BASOPHILS # (AUTO) 0.1 K/uL (0.0-0.2); BASOPHILS % (AUTO) 0.8 % (0.0-2.0); EOSINOPHILS # (AUTO) 0.3 K/uL (0.0-0.7); EOSINOPHILS % (AUTO) 4.2 % (0.0-6.0); HEMATOCRIT 40 % (39-51); HEMOGLOBIN 13.2 g/dL (13.5-17.5); LYMPHOCYTES # (AUTO) 3.1 K/uL (0.8-4.8); LYMPHOCYTES % (AUTO) 40.2 % (20.0-44.0); MEAN CORPUSCULAR HEMOGLOBIN 28 PG (26.0-33.0); MEAN CORPUSCULAR HGB CONC 33 g/dl (31.0-36.0); MEAN CORPUSCULAR VOLUME 83 fL (80-96); MONOCYTES # (AUTO) 0.8 K/uL (0.1-1.30); NEUTROPHILS # (AUTO) 3.4 K/uL (1.8-8.9); NEUTROPHILS % (AUTO) 44.8 % (43.0-81.0); PLATELET COUNT (AUTO) 280 K/uL (150-450); RED BLOOD CELL COUNT(AUTO) 4.78 MIL/uL (4.5-6.0); RED CELL DISTRIBUTION WIDTH 14.1 % (11.5-15.0); WHITE BLOOD COUNT (AUTO) 7.7 K/uL (4.3-11.0)
[2022-11-21 06:43] LABS: ALANINE AMINOTRANSFERASE 11 U/L (12-78); ALBUMIN 3.6 g/dL (3.4-5.0); ALKALINE PHOSPHATASE 43 U/L (46-116); ASPARTATE AMINOTRANSFERASE 14 U/L (15-37); BILIRUBIN,TOTAL 0.4 mg/dL (0.2-1.0); CALCIUM, SERUM 9.3 mg/dL (8.5-10.1); CARBON DIOXIDE 26 mmol/L (21-32); CHLORIDE 103 mmol/L (98-107); CREATININE 1.4 mg/dL (0.6-1.3); GLUCOSE 93 mg/dL (74-106); PHOSPHORUS 3.9 mg/dL (2.5-4.9); POTASSIUM 3.8 mmol/L (3.5-5.1); SODIUM SERUM 137 mmol/L (136-145); TOTAL PROTEIN, SERUM 7.4 g/dL (6.4-8.2); UREA NITROGEN, BLOOD 21 mg/dL (7-18)
[2022-11-21] MEDS: PANTOPRAZOLE 40 MG/PACK PACK PO SCH (07:43)
[2022-11-21] MEDS: METFORMIN 500 MG TABLET PO SCH ×2 (07:44→17:26)
[2022-11-21] MEDS: GLUCERNA SHAKE 237 ML CAN PO SCH ×2 (07:46→17:00)
[2022-11-21 08:00] VITALS: BP 134/98; TEMP 97.9; O2SAT 97
[2022-11-21] MEDS: SERTRALINE HCL 50 MG TABLET PO SCH (08:29)
[2022-11-21] MEDS: LINAGLIPTIN 5 MG TABLET PO SCH (08:29)
[2022-11-21] MEDS: risperiDONE 1 MG TABLET PO SCH ×2 (08:29→21:08)
[2022-11-21] MEDS: AMLODIPINE BESYLATE 10 MG TABLET PO SCH (08:29)
[2022-11-21] MEDS: DIVALPROEX SODIUM 250 MG TABLET.DR PO SCH ×2 (08:29→17:26)
[2022-11-21] MEDS: LISINOPRIL (20MG) 20 MG TABLET PO SCH (08:30)
[2022-11-21] MEDS: FENOFIBRATE NANOCRYS (145 MG) 145 MG TABLET PO SCH (08:31)
[2022-11-21 16:00] VITALS: BP 156/98; TEMP 97.9; O2SAT 98
[2022-11-21 20:00] VITALS: BP 163/98; TEMP 98.1; O2SAT 96
[2022-11-22 04:00] VITALS: BP 167/102; TEMP 98.2; O2SAT 97
[2022-11-22] MEDS: hydrALAZINE HCL 50 MG TABLET PO SCH ×3 (05:24→21:07)
[2022-11-22 06:28] LABS: BASOPHILS % (AUTO) 0.7 % (0.0-2.0); EOSINOPHILS # (AUTO) 0.3 K/uL (0.0-0.7); EOSINOPHILS % (AUTO) 4.9 % (0.0-6.0); HEMATOCRIT 40 % (39-51); HEMOGLOBIN 13.4 g/dL (13.5-17.5); LYMPHOCYTES # (AUTO) 2.7 K/uL (0.8-4.8); LYMPHOCYTES % (AUTO) 40.7 % (20.0-44.0); MEAN CORPUSCULAR HEMOGLOBIN 27 PG (26.0-33.0); MEAN CORPUSCULAR HGB CONC 34 g/dl (31.0-36.0); MEAN CORPUSCULAR VOLUME 82 fL (80-96); MONOCYTES # (AUTO) 0.7 K/uL (0.1-1.30); MONOCYTES % (AUTO) 9.9 % (2.0-12.0); NEUTROPHILS # (AUTO) 2.9 K/uL (1.8-8.9); NEUTROPHILS % (AUTO) 43.8 % (43.0-81.0); PLATELET COUNT (AUTO) 275 K/uL (150-450); RED BLOOD CELL COUNT(AUTO) 4.92 MIL/uL (4.5-6.0); RED CELL DISTRIBUTION WIDTH 14.1 % (11.5-15.0); WHITE BLOOD COUNT (AUTO) 6.7 K/uL (4.3-11.0)
[2022-11-22 06:41] LABS: ALBUMIN 3.7 g/dL (3.4-5.0); BILIRUBIN,TOTAL 0.4 mg/dL (0.2-1.0); CREATININE 1.1 mg/dL (0.6-1.3); MAGNESIUM 2.1 mg/dL (1.8-2.4); PHOSPHORUS 3.3 mg/dL (2.5-4.9); POTASSIUM 3.7 mmol/L (3.5-5.1); TOTAL PROTEIN, SERUM 7.6 g/dL (6.4-8.2)
[2022-11-22] MEDS: METFORMIN 500 MG TABLET PO SCH ×2 (07:52→17:13)
[2022-11-22] MEDS: PANTOPRAZOLE 40 MG/PACK PACK PO SCH (07:52)
[2022-11-22 08:00] VITALS: BP 154/98; TEMP 98; O2SAT 97
[2022-11-22] MEDS: GLUCERNA SHAKE 237 ML CAN PO SCH ×2 (08:02→17:13)
[2022-11-22] MEDS: risperiDONE 1 MG TABLET PO SCH ×2 (08:12→21:06)
[2022-11-22] MEDS: SERTRALINE HCL 50 MG TABLET PO SCH (08:12)
[2022-11-22] MEDS: DIVALPROEX SODIUM 250 MG TABLET.DR PO SCH ×2 (08:12→17:13)
[2022-11-22] MEDS: LINAGLIPTIN 5 MG TABLET PO SCH (08:12)
[2022-11-22] MEDS: FENOFIBRATE NANOCRYS (145 MG) 145 MG TABLET PO SCH (08:14)
[2022-11-22] MEDS: AMLODIPINE BESYLATE 10 MG TABLET PO SCH (09:15)
[2022-11-22] MEDS: LISINOPRIL (20MG) 20 MG TABLET PO SCH (09:16)
[2022-11-22 16:43] VITALS: BP 147/97; TEMP 98.5; O2SAT 97
[2022-11-22 20:00] VITALS: BP 154/120; TEMP 98.1; O2SAT 98
[2022-11-23 04:30] VITALS: BP 149/96; TEMP 98.6; O2SAT 97
[2022-11-23] MEDS: hydrALAZINE HCL 50 MG TABLET PO SCH (05:05)
[2022-11-23] MEDS: PANTOPRAZOLE 40 MG/PACK PACK PO SCH (07:55)
[2022-11-23] MEDS: METFORMIN 500 MG TABLET PO SCH (07:55)
[2022-11-23] MEDS: GLUCERNA SHAKE 237 ML CAN PO SCH (07:55)
[2022-11-23] MEDS: risperiDONE 1 MG TABLET PO SCH (09:11)
[2022-11-23] MEDS: DIVALPROEX SODIUM 250 MG TABLET.DR PO SCH (09:11)
[2022-11-23] MEDS: LINAGLIPTIN 5 MG TABLET PO SCH (09:12)
[2022-11-23] MEDS: LISINOPRIL (20MG) 20 MG TABLET PO SCH (09:12)
[2022-11-23] MEDS: AMLODIPINE BESYLATE 10 MG TABLET PO SCH (09:12)
[2022-11-23] MEDS: FENOFIBRATE NANOCRYS (145 MG) 145 MG TABLET PO SCH (09:13)
[2022-11-23] MEDS: SERTRALINE HCL 50 MG TABLET PO SCH (09:13)
[2022-11-23 09:55] VITALS: BP 145/97; TEMP 97.9; O2SAT 97
[2022-11-23 18:06] LABS: PTH, INTACT 24 pg/mL (15-65)
[2022-11-24 10:07] LABS: *SPE A/G RATIO 1.1 (0.7-1.7); *SPE ALBUMIN 3.5 g/dL (2.9-4.4); *SPE ALPHA-1-GLOBULIN 0.2 g/dL (0.0-0.4); *SPE ALPHA-2-GLOBULIN 0.7 g/dL (0.4-1.0); *SPE GLOBULIN, TOTAL 3.3 g/dL (2.2-3.9); *SPE M-SPIKE Not Observed g/dL (Not Observed); *SPE PROTEIN TOTAL 6.8 g/dL (6.0-8.5); *SPEGAMMA GLOBULIN 1.4 g/dL (0.4-1.8)
== END 2022-11-23 11:02 | DRG 640 ==
LOC: ER 15:22 → MEDSG1 20:34
PROVIDERS: ADMIT Internal Medicine
DX: R62.7 Adult failure to thrive (principal); N17.0 Acute kidney failure with tubular necrosis; D68.69 Other thrombophilia; G91.2 (Idiopathic) normal pressure hydrocephalus; F03.918 Unspecified dementia, unspecified severity, with other behavioral disturbance; F03.93 Unspecified dementia, unspecified severity, with mood disturbance; I10 Essential (primary) hypertension; K21.9 Gastro-esophageal reflux disease without esophagitis; Z74.09 Other reduced mobility; E78.5 Hyperlipidemia, unspecified; E87.6 Hypokalemia; G89.29 Other chronic pain; Z79.84 Long term (current) use of oral hypoglycemic drugs; Z87.891 Personal history of nicotine dependence; Z66 Do not resuscitate; R53.1 Weakness; E11.42 Type 2 diabetes mellitus with diabetic polyneuropathy; F41.9 Anxiety disorder, unspecified; F32.9 Major depressive disorder, single episode, unspecified; R26.81 Unsteadiness on feet; Z20.822 Contact with and (suspected) exposure to COVID-19; F25.9 Schizoaffective disorder, unspecified; Z79.899 Other long term (current) drug therapy
CPT/HCPCS: 36415; 71045-TC; 76770-TC; 80048-TC; 80053-TC; 80061-TC; 80076-TC; 82550-TC; 83540-TC; 83735-TC; 83970; 84100-TC; 84155; 84165; 84443-TC; 84484-TC; 85025-TC; 87081-TC; 93307-TC; 97110-TC; 97116-TC; G0378; J7030

== ENCOUNTER 2023-08-06 13:47 | Inpatient (IN) | payer MEDICARE, OTHER ==
[~2023-08-06] VITALS: Ht 180.3 cm; Wt 108.9 kg
[~2023-08-06 13:47] MED LIST changes: +ACET-868 PO; +AMLO-213 PO; +DIVA-76 PO; -DIVA125C5 PO; +MAGN400O6 PO; +RISP0.2515 PO; -RISP1TAB97 PO; +SERT50TA12 PO
[2023-08-06] MEDS ORDERED: RISP0.5T65 PO (14:20)
[2023-08-06] MEDS ORDERED: FAMO20TA8 PO (14:20)
[2023-08-06 14:31] LABS: BASOPHILS # (AUTO) 0.1 K/uL (0.0-0.2); BASOPHILS % (AUTO) 0.8 % (0.0-2.0); EOSINOPHILS # (AUTO) 0.3 K/uL (0.0-0.7); EOSINOPHILS % (AUTO) 4.3 % (0.0-6.0); HEMATOCRIT 39 % (39-51); LYMPHOCYTES # (AUTO) 1.7 K/uL (0.8-4.8); LYMPHOCYTES % (AUTO) 23.9 % (20.0-44.0); MEAN CORPUSCULAR HEMOGLOBIN 27 PG (26.0-33.0); MEAN CORPUSCULAR HGB CONC 33 g/dl (31.0-36.0); MEAN CORPUSCULAR VOLUME 81 fL (80-96); MONOCYTES # (AUTO) 1.1 K/uL (0.1-1.30); MONOCYTES % (AUTO) 15.9 % (2.0-12.0); NEUTROPHILS # (AUTO) 3.8 K/uL (1.8-8.9); NEUTROPHILS % (AUTO) 55.1 % (43.0-81.0); PLATELET COUNT (AUTO) 319 K/uL (150-450); RED BLOOD CELL COUNT(AUTO) 4.82 MIL/uL (4.5-6.0); RED CELL DISTRIBUTION WIDTH 14.3 % (11.5-15.0)
[2023-08-06 14:37] LABS: CALCIUM, SERUM 9.2 mg/dL (8.5-10.1); CARBON DIOXIDE 30 mmol/L (21-32); CHLORIDE 104 mmol/L (98-107); CREATININE 1.5 mg/dL (0.6-1.3); GLUCOSE 140 mg/dL (74-106); POTASSIUM 3.5 mmol/L (3.5-5.1); SODIUM SERUM 139 mmol/L (136-145); UREA NITROGEN, BLOOD 24 mg/dL (7-18)
[2023-08-06 14:42] LABS: INR 0.96 (0.91-1.10); PARTIAL THROMBOPLASTIN TIME 28.3 SEC (24.3-34.3); PROTHROMBIN TIME 9.9 SECS (9.2-11.1)
[2023-08-06 14:43] LABS: ALANINE AMINOTRANSFERASE 17 U/L (12-78); ALBUMIN 3.8 g/dL (3.4-5.0); ALKALINE PHOSPHATASE 36 U/L (46-116); ASPARTATE AMINOTRANSFERASE 11 U/L (15-37); BILIRUBIN,DIRECT 0.1 mg/dL (0.0-0.2); BILIRUBIN,TOTAL 0.2 mg/dL (0.2-1.0); TOTAL PROTEIN, SERUM 7.8 g/dL (6.4-8.2)
[2023-08-06] MEDS: IV NS 0.9% 500 ML BAG IV ONE (15:00)
[2023-08-06] MEDS ORDERED: MAGNESIUM HYDROXIDE 30 ML UDC PO PRN (15:30)
[2023-08-06] MEDS ORDERED: Z GUARD REMEDY 4 OZ OINT TP PRN (15:30)
[2023-08-06] MEDS ORDERED: ACETAMINOPHEN 325 MG TABLET PO PRN ×2 (15:30)
[2023-08-06] MEDS ORDERED: MAG HYDROX/AL HYDROX/SIMETH 30 ML UDC PO PRN (15:30)
[2023-08-06] MEDS ORDERED: DEXTROSE 50%-WATER 50 ML DISP.SYRIN IV PRN (15:30)
[2023-08-06] MEDS ORDERED: ONDANSETRON HCL/PF 4 MG/2 ML VIAL IVP PRN (15:30)
[2023-08-06 15:41] LABS: THYROID STIMULATING HORMONE 2.585 uIU/mL (0.358-3.74)
[2023-08-06 16:27] LABS: EOSINOPHILS % (MANUAL) 6 % (0-4); LYMPHOCYTES % (MANUAL) 27 % (16-48); MONOCYTES % (MANUAL) 17 % (0-11.0); NEUTROPHILS % (MANUAL) 50 (42-76)
[2023-08-06 16:28] LABS: PLATELET ESTIMATE ADEQUATE
[2023-08-06] MEDS: DIVALPROEX SODIUM 250 MG TABLET.DR PO SCH (17:19)
[2023-08-06] MEDS: BLOOD SUGAR DIAGNOSTIC 1 EACH STRIP VI SCH (18:58)
[2023-08-06] MEDS: INSULIN REGULAR, HUMAN 100 UNIT/ML 3 ML VIAL SQ PRN (18:58)
[2023-08-06] MEDS: IV NS 0.9% 1,000 ML IV PRN (19:01)
[2023-08-06] MEDS: CLONIDINE HCL 0.1 MG TABLET PO PRN (19:20)
[2023-08-06 20:00] VITALS: BP 170/99; TEMP 98.4; O2SAT 95
[2023-08-06] MEDS: *INSULIN REGULAR(HUMULIN R)HUM 100 UNIT/ML VIAL SQ PRN (22:21)
[2023-08-07 02:53] VITALS: BP 153/88
[2023-08-07 07:03] LABS: BASOPHILS % (AUTO) 0.5 % (0.0-2.0); EOSINOPHILS # (AUTO) 0.4 K/uL (0.0-0.7); EOSINOPHILS % (AUTO) 5.2 % (0.0-6.0); HEMATOCRIT 38 % (39-51); HEMOGLOBIN 12.8 g/dL (13.5-17.5); LYMPHOCYTES # (AUTO) 2.4 K/uL (0.8-4.8); LYMPHOCYTES % (AUTO) 34.4 % (20.0-44.0); MEAN CORPUSCULAR HEMOGLOBIN 28 PG (26.0-33.0); MEAN CORPUSCULAR HGB CONC 34 g/dl (31.0-36.0); MEAN CORPUSCULAR VOLUME 81 fL (80-96); MONOCYTES # (AUTO) 1.1 K/uL (0.1-1.30); MONOCYTES % (AUTO) 16.6 % (2.0-12.0); NEUTROPHILS % (AUTO) 43.3 % (43.0-81.0); PLATELET COUNT (AUTO) 293 K/uL (150-450); RED BLOOD CELL COUNT(AUTO) 4.65 MIL/uL (4.5-6.0); RED CELL DISTRIBUTION WIDTH 14.4 % (11.5-15.0); WHITE BLOOD COUNT (AUTO) 6.9 K/uL (4.3-11.0)
[2023-08-07 07:41] LABS: CALCIUM, SERUM 8.5 mg/dL (8.5-10.1); CREATININE 1.3 mg/dL (0.6-1.3); MAGNESIUM 2.2 mg/dL (1.8-2.4); PHOSPHORUS 3.1 mg/dL (2.5-4.9); POTASSIUM 3.2 mmol/L (3.5-5.1)
[2023-08-07 08:00] VITALS: BP 160/98; TEMP 99; O2SAT 98
[2023-08-07] MEDS: FAMOTIDINE (20 MG) 20 MG TABLET PO SCH (08:22)
[2023-08-07] MEDS: AMLODIPINE BESYLATE 10 MG TABLET PO SCH (08:23)
[2023-08-07] MEDS: risperiDONE 0.25 MG TABLET PO SCH (08:23)
[2023-08-07] MEDS: LINAGLIPTIN 5 MG TABLET PO SCH (08:23)
[2023-08-07] MEDS: SERTRALINE HCL 50 MG TABLET PO SCH (08:24)
[2023-08-07] MEDS: FENOFIBRATE NANOCRYS (145 MG) 145 MG TABLET PO SCH (08:40)
[2023-08-07] MEDS: POTASSIUM CHLORIDE 20 MEQ TAB.PRT.SR PO SCH (10:32)
[2023-08-07 11:38] LABS: EOSINOPHILS % (MANUAL) 4 % (0-4); LYMPHOCYTES % (MANUAL) 36 % (16-48); MONOCYTES % (MANUAL) 14 % (0-11.0); NEUTROPHILS % (MANUAL) 46 (42-76)
[2023-08-07 11:39] LABS: PLATELET ESTIMATE ADEQUATE; TEAR DROP CELLS OCC
[2023-08-07 16:00] VITALS: BP 147/96; TEMP 98.6; O2SAT 98
[2023-08-07 20:00] VITALS: BP 155/99; TEMP 98.1; O2SAT 99
[2023-08-08 07:33] LABS: BASOPHILS # (AUTO) 0.1 K/uL (0.0-0.2); BASOPHILS % (AUTO) 0.8 % (0.0-2.0); EOSINOPHILS # (AUTO) 0.6 K/uL (0.0-0.7); EOSINOPHILS % (AUTO) 7.3 % (0.0-6.0); HEMATOCRIT 38 % (39-51); HEMOGLOBIN 12.7 g/dL (13.5-17.5); LYMPHOCYTES # (AUTO) 2.7 K/uL (0.8-4.8); LYMPHOCYTES % (AUTO) 36.5 % (20.0-44.0); MEAN CORPUSCULAR HEMOGLOBIN 27 PG (26.0-33.0); MEAN CORPUSCULAR HGB CONC 34 g/dl (31.0-36.0); MEAN CORPUSCULAR VOLUME 81 fL (80-96); MONOCYTES % (AUTO) 13.2 % (2.0-12.0); NEUTROPHILS # (AUTO) 3.2 K/uL (1.8-8.9); NEUTROPHILS % (AUTO) 42.2 % (43.0-81.0); PLATELET COUNT (AUTO) 297 K/uL (150-450); RED BLOOD CELL COUNT(AUTO) 4.68 MIL/uL (4.5-6.0); RED CELL DISTRIBUTION WIDTH 14.2 % (11.5-15.0); WHITE BLOOD COUNT (AUTO) 7.5 K/uL (4.3-11.0)
[2023-08-08 08:45] VITALS: BP 150/92; TEMP 97.7; O2SAT 96
[2023-08-08 08:57] LABS: CALCIUM, SERUM 8.8 mg/dL (8.5-10.1); CREATININE 1.2 mg/dL (0.6-1.3); POTASSIUM 3.3 mmol/L (3.5-5.1)
[2023-08-08] MEDS: POTASSIUM CHLORIDE 20 MEQ TAB.PRT.SR PO SCH (09:20)
[2023-08-08 16:17] VITALS: BP 170/76; TEMP 99; O2SAT 98
[2023-08-08] MEDS: CLONIDINE HCL 0.1 MG TABLET PO PRN (16:19)
[2023-08-08 21:56] VITALS: BP 157/90; TEMP 98.8; O2SAT 98
[2023-08-09 06:54] LABS: CALCIUM, SERUM 8.2 mg/dL (8.5-10.1); CREATININE 1.1 mg/dL (0.6-1.3); POTASSIUM 3.4 mmol/L (3.5-5.1)
[2023-08-09 08:00] VITALS: BP 156/92; TEMP 98.4; O2SAT 97
[2023-08-09] MEDS: POTASSIUM CHLORIDE 20 MEQ TAB.PRT.SR PO SCH (10:09)
[2023-08-09 13:12] VITALS: BP 155/94
== END 2023-08-09 14:10 | DRG 640 ==
LOC: ER 13:55 → MED 18:04
PROVIDERS: ADMIT Internal Medicine; ATTEND Internal Medicine
DX: E86.0 Dehydration (principal); G93.41 Metabolic encephalopathy; N17.9 Acute kidney failure, unspecified; F03.93 Unspecified dementia, unspecified severity, with mood disturbance; E78.5 Hyperlipidemia, unspecified; E11.9 Type 2 diabetes mellitus without complications; E87.6 Hypokalemia; I10 Essential (primary) hypertension; R62.7 Adult failure to thrive; Z79.84 Long term (current) use of oral hypoglycemic drugs; R53.1 Weakness; F32.9 Major depressive disorder, single episode, unspecified; F03.90 Unspecified dementia, unspecified severity, without behavioral disturbance, psychotic disturbance, mood disturbance, and anxiety; E86.1 Hypovolemia; Z68.33 Body mass index [BMI] 33.0-33.9, adult; F25.9 Schizoaffective disorder, unspecified
CPT/HCPCS: 36415; 70450-TC; 71045-TC; 80048-TC; 80076-TC; 82962-TC; 83735-TC; 83880; 84100-TC; 84443-TC; 84484-TC; 85025-TC; 85730-TC; 87081-TC; A4223; G0378; J1815; J7030; J7040